=== PATIENT | female | born 1980 | race Caucasian/White ===

== ENCOUNTER 2016-10-17 13:31 | Emergency (ER) | payer MEDICAID ==
[~2016-10-17] VITALS: Ht 162.6 cm; Wt 78.9 kg
[2016-10-17 13:58] VITALS: BP 148/91
[2016-10-17] MEDS ORDERED: PRENATAL VITAMI1 TA2 PO (14:00)
--- NOTE | 2016-10-17 15:01 | NUR ---
PATIENT TAKEN TO BED # 8
--- NOTE | 2016-10-17 15:05 | NUR ---
14 WEEKS PREG. DECREASED MOVEMENT X1 DAY. DENIES BLEEDING. ; DENIES N/V/D; SKIN IS PINK/WARM/DRY; AAOX4 WITH EVEN AND STEADY GAIT; LUNGS CLEAR BL; HR EVEN AND REGULAR; PT DENIES ANY FEVER, CP, SOB, OR COUGH AT THIS TIME; PATIENT STATES PAIN OF 0/10 AT THIS TIME; VSS; PATIENT POSITIONED FOR COMFORT; HOB ELEVATED; BEDRAILS UP X2; BED DOWN. ER MD MADE AWARE OF PT STATUS.
--- NOTE | 2016-10-17 15:26 | NUR ---
[facility] PT WITH AT BEDSIDE BEING ASSESS BY DR VAZQUEZ
--- NOTE | 2016-10-17 15:29 | NUR ---
SHAWN RODNEY AT BEDSIDE FOR HEART TONE ASSESSMENT
--- NOTE | 2016-10-17 15:32 | NUR ---
HEART TONE 152 BPM REGULAR MIDABDOMEN PER SHAWN RODNEY Addendum: 10/17/16 at [address] TAYLOR WICK
[2016-10-17 16:05] VITALS: BP 110/75
--- NOTE | 2016-10-17 16:05 | NUR ---
Patient discharged with v/s stable. Written and verbal after care instructions given and explained. Patient verbalized understanding. Ambulatory with steady gait. All questions addressed prior to discharge. Advised to follow up with PMD.
== END 2016-10-17 16:05 | disposition home or self-care (01) ==
LOC: MED 13:31
DX: O36.8120 Decreased fetal movements, second trimester, not applicable or unspecified (principal); Z3A.14 14 weeks gestation of pregnancy